=== PATIENT | female | born 1975 | race Caucasian/White ===

== ENCOUNTER → 2020-11-28 | Outpatient (CLI) | payer OTHER ==
--- NOTE | 2020-11-28 16:03 | KCIC ---
EXAMINATION: XR CHEST 2V CLINICAL HISTORY: ACUTE LOWER RESPIRATORY TRACT INFECTION. Cough and lower lung sounds heard by physi reyna. EXAM DATE/TIME: 11/28/2020 3:45 PM COMPARISON: None FINDINGS: Lines, Tubes, and Devices: None. Cardiomediastinal Silhouette: Normal heart size. Aortic atherosclerotic calcification. Lungs and Pleura: No evidence of focal airspace consolidation or pleural effusion. Pulmonary vasculat ure unremarkable. Bones and Soft Tissues: Degenerative changes of the thoracic spine with mild anterior wedging and sev eral lower thoracic vertebral bodies, possibly physiologic or related to remote trauma. IMPRESSION: No evidence of acute cardiopulmonary abnormality. Electronically signed by: Wai Lee DO (11/28/2020 4:01 PM) [id number]
== END ==
LOC: KCIC 15:40
PROVIDERS: ATTEND Clinical Nurse Specialist Family Health
DX: J22 Unspecified acute lower respiratory infection (principal); I70.0 Atherosclerosis of aorta; M47.814 Spondylosis without myelopathy or radiculopathy, thoracic region
CPT/HCPCS: 71046